=== PATIENT | female | born 1990 | race American Indian/Alaskan Native ===

== ENCOUNTER 2018-11-04 22:27 | Emergency (ER) | payer MEDICAID, OTHER ==
[2018-11-04 22:34] VITALS: BP 121/76
--- NOTE | 2018-11-04 23:22 | XRay Report ---
PROCEDURE: RIGHT SHOULDER, 3 OR MORE VIEWS TECHNIQUE: RIGHT shoulder radiographs including AP views in internal and external rotation and abduc tion. CPT 48408 HISTORY: Right shoulder pain COMPARISONS: None . FINDINGS: Fracture (s) and/or Dislocation(s): None . Joint space(s): Normal . Soft tissues: Normal . Bone mineralization: Normal . Foreign bodies: None . IMPRESSION: Normal Examination . This document is electronically signed by Harjit Sheriff MD., November 04 2018 11:20:21 PM ET
== END 2018-11-05 03:50 | disposition left against medical advice (07) ==
LOC: ED 22:27
DX: M79.601 Pain in right arm (principal); Z53.21 Procedure and treatment not carried out due to patient leaving prior to being seen by health care provider

== ENCOUNTER 2019-02-15 18:52 | Emergency (ER) | payer MEDICAID, OTHER ==
[2019-02-15 19:20] VITALS: BP 113/75
--- NOTE | 2019-02-15 19:49 | Event Note ---
ED Screening Note Date of service: 02/15/19 Time: 19:45 ED Screening Note: This is a 29 y.o. F. that presents to the ER with pain and swelling to right shoulder. Reports frequent heavy lifting at work and not sure if she injured it. Applying ice and taking NSAIDs without relief. Current smoker. LMP 02/09/2019 This initial assessment/diagnostic orders/clinical plan/treatment(s) is/are subject to change based on patients health status, clinical progression and re- assessment by fellow clinical providers in the ED. Further treatment and workup at subsequent clinical providers discretion. Patient/guardian urged not to elope from the ED as their condition may be serious if not clinically assessed and managed. Initial orders include: XR right shoulder
--- NOTE | 2019-02-15 20:54 | Emergency Department Report ---
ED Extremity Problem HPI - General Chief complaint: Extremity Injury, Upper Stated complaint: RT ARM PAIN Time Seen by Provider: 02/15/19 19:45 Source: patient Mode of arrival: Ambulatory Limitations: No Limitations - History of Present Illness Initial comments: This is a 29 y.o. F. that presents to the ER with pain and swelling to right shoulder times month but has gotten worst in the last few days. Reports that the shoulder feels heavy and hears popping when he moves it. Reports frequent heavy lifting at work and not sure if she injured it. Applying ice and taking NSAIDs without relief. Current smoker. LMP 02/09/2019 Location: right, upper extremity, other (shoulder ) History of Same: No Severity scale (0 -10): 10 Quality: aching, constant Consistency: constant Improves with: cold therapy, immobilization Associated Symptoms: denies other symptoms - Related Data Previous Rx's Medication Instructions Recorded Last Taken Type Ibuprofen [Motrin 800 MG tab] 800 mg PO Q8HR PRN #30 tablet 02/15/19 Unknown Rx Allergies Allergy/AdvReac Type Severity Reaction Status Date / Time No Known Allergies Allergy Verified 11/04/18 22:31 ED Review of Systems ROS: Stated complaint: RT ARM PAIN Other details as noted in HPI Comment: All other systems reviewed and negative ED Past Medical Hx - Surgical History Additional Surgical History: c-sec - Social History Smoking Status: Current Every Day Smoker Substance Use Type: None - Medications Home Medications: Home Medications Medication Instructions Recorded Confirmed Last Taken Type Ibuprofen [Motrin 800 MG tab] 800 mg PO Q8HR PRN #30 tablet 02/15/19 Unknown Rx ED Physical Exam - General Limitations: No Limitations General appearance: alert, in no apparent distress - Head Head exam: Present: atraumatic, normocephalic - Eye Eye exam: Present: normal appearance - ENT ENT exam: Present: mucous membranes moist - Neck Neck exam: Present: normal inspection, full ROM. Absent: tenderness - Respiratory Respiratory exam: Present: normal lung sounds bilaterally. Absent: respiratory distress - Cardiovascular Cardiovascular Exam: Present: regular rate, normal rhythm. Absent: systolic murmur, diastolic murmur, rubs, gallop - Expanded Upper Extremity Exam Right Shoulder Exam: Present: full ROM, tenderness, crepidus. Absent: swelling Upper Arm exam: Present: normal inspection, full ROM. Absent: tenderness, swelling Elbow exam: Present: normal inspection, full ROM. Absent: tenderness, swelling Forearm Wrist exam: Present: normal inspection, full ROM. Absent: tenderness, swelling Hand Wrist exam: Present: normal inspection, full ROM. Absent: tenderness, swelling Vascular: Present: normal capillary refill. Absent: vascular compromise Left Shoulder Exam: Present: normal inspection, full ROM. Absent: crepidus Upper Arm exam: Present: normal inspection, full ROM Elbow exam: Present: normal inspection, full ROM Forearm Wrist exam: Present: normal inspection, full ROM Hand Wrist exam: Present: normal inspection. Absent: full ROM Vascular: Present: normal capillary refill - Back Exam Back exam: Present: normal inspection - Neurological Exam Neurological exam: Present: alert, oriented X3 - Psychiatric Psychiatric exam: Present: normal affect, normal mood - Skin Skin exam: Present: warm, dry, intact, normal color. Absent: rash ED Course Vital Signs 02/15/19 02/15/19 19:17 19:45 Temperature 98.2 F 98.2 F Pulse Rate 91 H 98 H Respiratory 18 16 Rate Blood Pressure 113/75 113/75 O2 Sat by Pulse 97 98 Oximetry ED Medical Decision Making - Radiology Data Radiology results: report reviewed Patient: PEYMAN ARREAGA MR#: [id number] : 1990 Acct:[id number] Age/Sex: 29 / F ADM Date: 02/15/19 Loc: ED Attending Dr: Ordering Physician: GLORIA RIVERA Date of Service: 02/15/19 Procedure(s): XR shoulder 2+V RT Accession Number(s): [id number] cc: GLORIA RIVERA Fluoro Time In Minutes: RIGHT SHOULDER 3 VIEWS INDICATION / CLINICAL INFORMATION: Right shoulder pain and swelling. COMPARISON: None available. FINDINGS: BONES / JOINT(S): No acute fracture or subluxation. No significant arthritis. SOFT TISSUES: No significant abnormality. ADDITIONAL FINDINGS: The visualized portion of the right lung is clear. IMPRESSION: Negative study. Signer Name: Pedro Luis Cortes MD Signed: 02/15/2019 9:06 PM Workstation Name: [id number] Transcribed By: RT Dictated By: Pedro Luis Cortes MD Electronically Authenticated By: Pedro Luis Cortes MD Signed Date/Time: 02/15/192105 DD/ 05 TD/TT: - Medical Decision Making This is a 29 y.o. F. that presents to the ER with pain and swelling to right shoulder times month but has gotten worst in the last few days. Reports that the shoulder feels heavy and hears popping when he moves it. Reports frequent heavy lifting at work and not sure if she injured it. Applying ice and taking NSAIDs without relief. Current smoker. LMP 02/09/2019 X-ray of right shoulder shows no abnormalities. We'll give patient in [place] and ibuprofen for pain management now. We'll discharge patient home on ibuprofen 8 00 mg 3 times a day when necessary and referral to orthopedist for further evaluation. Critical care attestation.: If time is entered above; I have spent that time in minutes in the direct care of this critically ill patient, excluding procedure time. ED Disposition Clinical Impression: Pain of right shoulder region Disposition: DC-01 TO HOME OR SELFCARE Is pt being admited?: No Does the pt Need Aspirin: No Condition: Stable Instructions: Shoulder Sprain (ED), Arthralgia (ED) Additional Instructions: Plain x-ray shows no acute abnormalities. I highly recommend free to follow-up with orthopedic provider I said may want to do further testing. Please take pain medication as needed continue with ice therapy. Prescriptions: Ibuprofen [Motrin 800 MG tab] 800 mg PO Q8HR PRN #30 tablet PRN Reason: Pain , Severe (7-10) Referrals: PEDRO LUIS VILLALOBOS MD [Staff Physician] - 3-5 Days JANICE DEXTER MD [Staff Physician] - 3-5 Days Forms: Work/School Release Form(ED)
--- NOTE | 2019-02-15 21:11 | XRay Report ---
RIGHT SHOULDER 3 VIEWS INDICATION / CLINICAL INFORMATION: Right shoulder pain and swelling. COMPARISON: None available. FINDINGS: BONES / JOINT(S): No acute fracture or subluxation. No significant arthritis. SOFT TISSUES: No significant abnormality. ADDITIONAL FINDINGS: The visualized portion of the right lung is clear. IMPRESSION: Negative study. Signer Name: Uriah Cortes MD Signed: 02/15/2019 9:06 PM Workstation Name: [id number]
[2019-02-15] MEDS ORDERED: IBUPROFEN 800 MG TAB PO ONE (21:29)
[2019-02-15] MEDS ORDERED: HYDROcodone/ACETAMINOPHEN 5-325 MG TAB PO ONE (21:29)
== END 2019-02-15 22:19 | disposition home or self-care (01) ==
LOC: ED 18:52
DX: M25.511 Pain in right shoulder (principal); R22.31 Localized swelling, mass and lump, right upper limb
CPT/HCPCS: 99283